=== PATIENT | male | born 1980 | race Caucasian/White ===

== ENCOUNTER 2023-11-22 17:00 | Outpatient (OUT) | payer BC, SELFPAY ==
--- NOTE | 2023-11-22 17:08 | XR_ITS ---
The [address] [address] Patient Name: SUSAN MURRAY MRN: [id number] date: 1980 Sex: M Assigned Patient Location: [facility] Current Patient Location: [facility] Accession/Order Number: [id number] Exam Date: 11/22/2023 17:30 Report Date: 11/23/2023 11:18 At the request of: SAVANAH FUENTES Procedure: XR knee RT 3V PROCEDURE: XR knee RT 3V HISTORY: Psoriasis L40.9 ; anterior knee pain for 2 and 3 weeks COMPARISON: None. FINDINGS: BONES:No fracture, acute abnormality, or significant arthropathy. SOFT TISSUES:No visible soft tissue swelling. EFFUSION:None visible. OTHER: Negative. XR/XR knee RT 3V IMPRESSION: 1. No acute bone abnormality or significant degenerative joint disease. Electronically authenticated by: JAROD WHALEY Date: 11/23/2023 11:18
== END 2023-11-22 17:01 | disposition home or self-care (01) ==
PROVIDERS: PCP Family Medicine; Visit Provider Family Medicine
DX: L40.9 Psoriasis, unspecified (principal)
CPT/HCPCS: 73562